=== PATIENT | female | born 1985 | race Caucasian/White ===

== ENCOUNTER 2021-10-01 05:35 | Outpatient (CLI) | payer BC ==
[~2021-10-01] VITALS: Ht 160 cm; Wt 94.5 kg
[2021-10-01] MEDS ORDERED: LEVO150C4 PO (14:35)
[2021-10-01] MEDS ORDERED: DOXY100C5 PO (14:35)
[2021-10-01] MEDS ORDERED: VALA500T7 PO (14:35)
== END 2021-10-01 14:42 | disposition home or self-care (01) ==
LOC: PREOP 05:35
PROVIDERS: ATTEND Obstetrics & Gynecology
DX: Z01.818 Encounter for other preprocedural examination (principal)

== ENCOUNTER 2021-10-08 11:05 | Day surgery (SDC) | payer BC ==
[~2021-10-08] VITALS: Ht 160 cm; Wt 94.5 kg
[2021-10-08] VITALS (12 sets, daily range): BP systolic 102–133; BP diastolic 58–86
--- NOTE | 2021-10-08 08:24 | Progress Note-Post Operative ---
Post-Operative Progess Note Surgeon (s)/Sales Trader (s) Surgeon SINDHU SYLVESTER MD Sales Trader: Ara Pre-Operative Diagnosis Menorrhagia/endometriosis/chronic pelvic pain/dyspareunia Post-Operative Diagnosis Same with pathology pending Procedure & Operative Findings Date of Procedure 10/08/21 Procedure Performed/Findings Total laparoscopic hysterectomy with right salpingo-oophorectomy and left salpingectomy as well as cystoscopy Anesthesia Type General anesthesia Estimated Blood Loss Estimated blood loss (mL): Minimal Specimens/Packing Specimens Removed Uterus/fallopian tube/right ovary SINDHU SYLVESTER MD Oct 08, 2021 08:24
--- NOTE | 2021-10-08 08:24 | Progress Note-Pre Operative ---
Pre-Operative Progress Note H&P Reviewed The H&P was reviewed, patient examined and no changes noted.We again had a lengthy discussion regarding the planned surgical procedure that being total laparoscopic hysterectomy with right salpingo-oophorectomy and left salpingectomy with conservation of the left ovary with consideration of removing the left ovary should it appear abnormal. Other indicated procedures would be entertained should indications arise. All the patient's questions were answered she is ready to proceed with the surgery Date Seen by Provider: Oct 08, 2021 Time Seen by Provider: 12:56 Date H&P Reviewed: Oct 08, 2021 Time H&P Reviewed: 12:56 Pre-Operative Diagnosis: Menorrhagia/endometriosis/chronic pelvic pain/dyspareunia SINDHU SYLVESTER MD Oct 08, 2021 08:24
[~2021-10-08 11:05] MED LIST: DOXY100C5 PO; LEVO150C4 PO; VALA500T7 PO
[2021-10-08] MEDS ORDERED: fentaNYL INJ 100 MCG/2 ML AMP IVP PRN (11:30)
[2021-10-08] MEDS ORDERED: ceFAZolin INJECTION 1,000 MG VIAL IV ONE (11:30)
[2021-10-08] MEDS ORDERED: D5 LR IV SOLUTION 1,000 ML IV SCH (11:30)
[2021-10-08] MEDS ORDERED: PROMETHAZINE INJ 25 MG/ML (PHENERGAN) AMP IM PRN (11:30)
[2021-10-08] MEDS ORDERED: ONDANSETRON 4 MG/2 ML (SDV) Z0FRAN IVP PRN ×3 (11:30→15:00)
[2021-10-08] MEDS ORDERED: ESTROGENS CONJ INJECTION 25 MG in WATER (STERILE) FOR INJECTION 5 ML IV ONE (11:30)
[2021-10-08] MEDS: LACTATED RINGERS 1,000 ML IV PRN ×3 (11:55→15:14)
[2021-10-08 12:08] LABS: BASOPHILS # (AUTO) 0.1 10^3/uL (0.0-0.1); BASOPHILS % (AUTO) 1 % (0-10); EOSINOPHILS # (AUTO) 0.3 10^3/uL (0.0-0.3); EOSINOPHILS % (AUTO) 3 % (0-10); HEMATOCRIT 39 % (35-52); HEMOGLOBIN 12.8 g/dL (11.5-16.0); LYMPHOCYTES # (AUTO) 2.6 10^3/uL (1.0-4.0); LYMPHOCYTES % (AUTO) 26 % (12-44); MEAN CORPUSCULAR HEMOGLOBIN 25 pg (25-34); MEAN CORPUSCULAR HGB CONC 33 g/dL (32-36); MEAN CORPUSCULAR VOLUME 76 fL (80-99); MEAN PLATELET VOLUME 10.2 fL (9.0-12.2); MONOCYTES # (AUTO) 0.8 10^3/uL (0.0-1.0); MONOCYTES % (AUTO) 8 % (0-12); NEUTROPHILS # (AUTO) 6.5 10^3/uL (1.8-7.8); NEUTROPHILS % (AUTO) 63 % (42-75); PLATELET COUNT 410 10^3/uL (130-400); WHITE BLOOD COUNT 10.3 10^3/uL (4.3-11.0)
[2021-10-08] MEDS ORDERED: LIDOCAINE/EPI 2% 1:200,00 (XYLOCAINE) 20 ML VIAL ONE (12:08)
[2021-10-08] MEDS ORDERED: ceFAZolin INJECTION 1,000 MG ONE (12:09)
[2021-10-08] MEDS ORDERED: fentaNYL INJ 100 MCG/2 ML AMP ONE (12:29)
[2021-10-08] MEDS ORDERED: ROCURONIUM 50 MG/5 ML (ZEMURON) VIAL IV ONE ×2 (12:29→14:17)
[2021-10-08] MEDS ORDERED: ONDANSETRON 4 MG/2 ML (SDV) Z0FRAN ONE ×2 (12:29→17:04)
[2021-10-08] MEDS ORDERED: LIDOCAINE PF 2% 5 ML (XYLOCAINE) VIAL ONE (12:29)
[2021-10-08] MEDS ORDERED: proPOfol 200 MG/20 ML (DIPRIVAN) VIAL IV ONE (12:29)
[2021-10-08] MEDS ORDERED: SEVOFLURANE (ULTANE) 15 ML INHAL SOLN ONE ×2 (12:29→14:38)
[2021-10-08] MEDS ORDERED: MIDAZOLAM 2 MG/2 ML (VERSED) VIAL ONE (12:30)
--- NOTE | 2021-10-08 13:00 | Discharge Inst-Surgical ---
Discharge Inst-Surgical Depart Medication/Instructions New, Converted or Re-Newed RX: Transmitted to Pharmacy Consults/Follow Up Patient Instructions: As directed Orders & Referrals Follow Up Appt: Return to clinic on Tuesday01/12/2022 for staple removal Call to make follow up appt. for patient in 4 weeks. Activity: Rest for 24 hours, than as tolerated. Wound Care: May remove Band-Aid tomorrow. Replace as desired. Keep incisions clean and dry. Wash daily with soap and water. Prescriptions have been transmitted to patient's pharmacy from my clinic Diet: As tolerated shower or tub bathe as desired. No driving for 24 hours, no alcoholic beverages for 24 hours, and nothing per vagina (no tampons, douching, or intercourse) for 8 weeks. Patient to return to the clinic as soon as possible for: Temperature greater than 101F, Severe Pain, Foul discharge from incision or vagina, Excessive Bleeding (more than a period). Activity Activity as Tolerated: No Diet Discharge Diet: No Restrictions SINDHU SYLVESTER MD Oct 08, 2021 13:00
[2021-10-08] MEDS ORDERED: GLYCOPYRROLATE 0.2 MG/ML (ROBINUL) 2 ML VIAL ONE ×2 (14:17→14:33)
[2021-10-08] MEDS ORDERED: NEOSTIGMINE 3 MG/3 ML VIAL ONE ×2 (14:17→14:33)
--- NOTE | 2021-10-08 14:46 | Anesthesia-General Post-Op ---
General Patient Condition Mental Status/LOC: Same as Preop Cardiovascular: Satisfactory Nausea/Vomiting: Absent Respiratory: Satisfactory Pain: Controlled Complications: Absent Post Op Complications Complications None Follow Up Care/Instructions Patient Instructions None needed. Anesthesia/Patient Condition Patient Condition Patient is doing well, no complaints, stable vital signs, no apparent adverse anesthesia problems. No complications reported per nursing. DARCY DOMINGUEZ CRNA Oct 08, 2021 14:46
[2021-10-08] MEDS ORDERED: ESTROGENS CONJ INJECTION 5 ML ONE (14:53)
[2021-10-08] MEDS ORDERED: WATER (STERILE) FOR INJECTION 10 ML ONE (14:53)
[2021-10-08] MEDS: KETOROLAC 30 MG/ML VIAL IVP SCH ×2 (14:55→20:57)
[2021-10-08] MEDS ORDERED: HYDROmorphone 2 MG/ML VIAL (DILAUDID) ONE (14:59)
[2021-10-08] MEDS ORDERED: HYDROmorphone 2 MG/ML VIAL (DILAUDID) IV ONE (15:00)
[2021-10-08] MEDS ORDERED: fentaNYL INJ 100 MCG/2 ML AMP IVP ONE (15:00)
[2021-10-08] MEDS: oxyCODONE/APAP 5/325MG (PERCOCET 5) TABLET PO PRN (19:14)
[2021-10-08] MEDS: DOCUSATE SODIUM 100 MG (COLACE) CAP PO SCH (20:57)
--- NOTE | 2021-10-08 23:47 | OPERATIVE REPORT ---
DATE OF SERVICE: 10/08/2021 PREOPERATIVE DIAGNOSES: 1. Menorrhagia. 2. Chronic pelvic pain. 3. Endometriosis. 4. Ovarian cyst. POSTOPERATIVE DIAGNOSES: 1. Menorrhagia. 2. Chronic pelvic pain. 3. Endometriosis and pelvic adhesions. 4. Ovarian cyst. OPERATIVE PROCEDURE: Total laparoscopic hysterectomy with right salpingo-oophorectomy and left salpingectomy as well as cystoscopy. OPERATIVE DESCRIPTION: With the patient in the supine position under satisfactory general anesthesia, she was repositioned in dorsal lithotomy position in the [facility] and prepped and draped in the usual fashion for abdominal and vaginal surgery using the da Megan assistance. Weighted speculum placed in the posterior fornix of vagina, cervix exposed and grasped anteriorly with single tooth tenaculum. Uterus sounded to 8 cm with uterine sound. The cervix was then serially dilated with Elroy dilators to accommodate a Marisa II manipulator, which was placed using a 6 mm x 8 cm uterine probe and a 25 mm colpotomy ring. Sutures of #1 Vicryl placed at 3 and 9 o'clock position of the cervix to affix the uterus to the manipulator. The tenaculum and speculum were removed. Griffith catheter was placed in the urinary bladder. The patient was brought in low dorsal lithotomy position. A 12 mm incision was made above the umbilicus about 10 to 12 cm. Veress needle was placed. The abdomen was insufflated with carbon dioxide to 2.4 liters and then a 12 mm Optiview laparoscopic port was placed. The placement did not seem quite closure. So, at this point, I halted further manipulation of that port in favor of replacing a 5 mm laparoscopic port in the left upper quadrant. With that done, I could see that the port placement had penetrated into the fatty tissue enveloping the ligamentum teres. With little more pressure, I was able to position that port through that tissue into the abdominal cavity, correctly placed. Because of the port ended up being too short at this location, an exchange sky was inserted, the port was removed, and a bariatric port was placed allowing for continuation of the procedure. 8 mm ports were placed through incisions of the sizes 8 cm lateral to the umbilicus and about 4 cm above the umbilicus. The patient was placed in Trendelenburg allowing the bowel spill out of the pelvis. There was a large omental adhesion near the umbilicus internally. This was left in situ for taken down shortly. With the bowel out of the pelvis, the da Megan column was advanced on the patient and docked and I retired to the da Megan console after placing operative instruments in the right and left lateral ports. At the console using the vessel sealer on the right, the adhesion of the omentum to the anterior abdominal wall was freed by transecting that tissue with the vessel sealer. Hemostasis was complete. With that done, appropriate access to the pelvis was obtained. The uterus was freely mobile. Both fallopian tubes showed evidence of tubal sterilization. The right ovary had multilocular cyst and extensive adhesions, left ovary looked normal. Both ureters were seemed to peristalse. Laparoscope was rotated. The appendix was surgically absent and was not identified. Attention was brought back to the pelvis. Attention was turned to the procedure, which was to consist of total laparoscopic hysterectomy, right salpingo-oophorectomy, and left salpingectomy. The right fallopian tube was grasped and elevated, elevating the ovary. The IP ligament was clamped, cauterized and divided, taking care to stay clear of the ureter. That dissection was now continued across the mesovarium, across to the round ligament, across the round ligament down the broad ligament and onto the cardinal ligament vessels, allowing eventually for removal of the right tube and ovary with the uterus. On the left, the ovary was to be conserved, so the left fallopian tube was grasped and elevated. The mesosalpinx was clamped, cauterized and divided with the vessel sealer that was continued stepwise over to the uteroovarian pedicle was then clamped, cauterized and divided. Dissection was carried across to the round ligament across the broad ligament down onto the cardinal ligament, allowing for removal eventually of the left fallopian tube with the uterus and conservation of the left ovary. The anterior lower uterine segment peritoneum was now divided. The bladder was carefully dissected down off the lower uterine segment and colpotomy incision was started at 12 o'clock position onto the colpotomy ring. That incision was continued circumferentially until the entire colpotomy ring was exposed and then the uterus with the tubes and the right ovary still attached was extracted through the vagina that was sent to pathology for permanent section. The vaginal cuff was relatively hemostatic. It was closed with a single suture V-Loc barbed suture starting from the right angle and continuing across to the left angle taking care to ensure inclusion of the uterine vessel pedicles bilaterally. Both ureters were seemed to peristalse the right much better than left. Decision was made to go ahead with cystoscopy to ensure ureteral function and patency. With the intra-abdominal portion of the procedure complete and no bleeding and no abnormal pathology, the procedure was terminated. The operative instruments were removed under direct vision as were the ports. The abdomen was evacuated of the insufflating gas. The skin incisions were closed with daniel. The fascia at the supraumbilical incision was closed with a [id number] suture of 2-0 Vicryl. The urinary bladder catheter was removed using saline as a distending medium. The cystoscope was introduced. The ureteral orifices bilaterally were identified after several minutes free efflux from each ureteral orifice was confirmed. The cystoscope was removed. Griffith catheter was placed to dependent drainage. A speculum was placed in the vagina. Vaginal cuff was examined for complete closure and hemostasis, which is what was found. Sponge and needle counts were now correct. Blood loss was minimal. The patient tolerated the procedure well and was uneventfully awakened from her general anesthesia and transferred to the recovery room in stable condition. Job ID: [id number] DocumentID: [id number] Dictated Date: 10/08/2021 15:37:49 Manager Architectural Date: 10/08/2021 23:46:22 Dictated By: SINDHU SYLVESTER MD
[2021-10-09] MEDS ORDERED: IBUPROFEN 800 MG (MOTRIN) TAB PO SCH
[2021-10-09] MEDS: oxyCODONE/APAP 5/325MG (PERCOCET 5) TABLET PO PRN ×2 (01:42→05:43)
[2021-10-09] MEDS: IBUPROFEN 800 MG (MOTRIN) TAB PO SCH ×2 (03:00→08:32)
[2021-10-09 03:06] VITALS: BP 112/55
--- NOTE | 2021-10-09 07:51 | Progress Note ---
Standard Progress Note Progress Notes/Assess & Plan Date Seen by a Provider: Oct 09, 2021 Time Seen by a Provider: 07:50 Progress/Assessment & Plan This patient is without complaint. She is ambulating, voiding, tolerating oral intake well and has good pain control. Vital Signs Date Time Temp Pulse Resp B/P (MAP) Pulse Ox O2 Delivery O2 Flow Rate FiO2 10/09/21 03:06 36.5 75 18 112/55 (74) 97 Room Air 10/08/21 23:30 36.9 78 18 102/58 (73) 96 Room Air 10/08/21 19:48 98 Room Air 10/08/21 19:48 36.5 74 18 115/66 (82) 98 Room Air 10/08/21 18:52 98 Room Air 10/08/21 18:45 Room Air 10/08/21 18:29 98 Nasal Cannula 1.00 10/08/21 17:35 97 Nasal Cannula 1.00 10/08/21 17:30 36.9 64 16 108/61 (77) 94 Room Air 10/08/21 17:10 98 Room Air 10/08/21 16:45 Nasal Cannula 1.00 10/08/21 16:20 36.4 64 16 119/64 (82) 98 Nasal Cannula 2.00 10/08/21 15:50 36.5 60 16 112/70 (84) 98 Nasal Cannula 2.00 10/08/21 15:45 98 Nasal Cannula 2.00 10/08/21 15:40 Room Air 10/08/21 15:30 36.6 14 123/73 (90) 95 Room Air 10/08/21 15:25 OxyMask 4 10/08/21 15:20 16 121/68 (85) 97 OxyMask 4 10/08/21 15:10 OxyMask 4 10/08/21 15:10 16 123/74 (90) 100 OxyMask 8 10/08/21 15:00 16 125/66 (85) 100 OxyMask 8 10/08/21 14:55 OxyMask 8 10/08/21 14:50 22 133/80 (97) 98 OxyMask 8 10/08/21 14:39 OxyMask 8 10/08/21 14:39 36.8 20 123/74 (90) 100 OxyMask 8 10/08/21 11:31 36.8 86 18 126/86 (99) 98 Room Air I & O 10/09/21 07:00 Intake Total 5945 ml Output Total 3700 ml Balance 2245 ml Vital signs are stable. Patient is afebrile. Abdomen is benign. Extremities show no clubbing or cyanosis. There is no Homans' sign. Pelvic exam was deferred Assessment and plan Postoperative day #1 doing well plan is for discharge home Final Diagnosis Menorrhagia/pelvic pain/ovarian cyst/dysmenorrhea SINDHU SYLVESTER MD Oct 09, 2021 07:51
[2021-10-09] MEDS: DOCUSATE SODIUM 100 MG (COLACE) CAP PO SCH (08:32)
[2021-10-09 08:40] VITALS: BP 97/60
[2021-10-09] MEDS ORDERED: DOCUSATE SODIUM 100 MG (COLACE) CAP PO SCH (09:00)
== END 2021-10-09 08:55 | disposition home or self-care (01) ==
LOC: SDC 11:05 → WS 15:40 → SDC 10-09 08:55
PROVIDERS: ATTEND Obstetrics & Gynecology
DX: N84.1 Polyp of cervix uteri (principal); N83.8 Other noninflammatory disorders of ovary, fallopian tube and broad ligament; N83.01 Follicular cyst of right ovary; N92.0 Excessive and frequent menstruation with regular cycle
CPT/HCPCS: 36415; 84703; 85025; 87081; 94664; 94760